=== PATIENT | female | born 1995 | race Asian ===

== ENCOUNTER 2018-08-13 13:09 | Emergency (ER) | payer SELFPAY ==
[~2018-08-13] VITALS: Ht 154.9 cm; Wt 57.2 kg
[2018-08-13 13:27] VITALS: BP 93/61
[2018-08-13 13:57] LABS: BASOPHILS # (AUTO) 0.02 x10^3/uL (0-0.3); BASOPHILS % (AUTO) 0 % (0-1); EOSINOPHILS # (AUTO) 0.04 x10^3/uL (0-0.8); EOSINOPHILS % (AUTO) 1 % (1-7); LYMPHOCYTES # (AUTO) 2.03 x10^3/uL (1-6.1); LYMPHOCYTES % (AUTO) 22 % (22-44); MD NO; MEAN CORPUSCULAR HEMOGLOBIN 28.8 pg (27.0-34.8); MEAN CORPUSCULAR HGB CONC 33.9 g/dL (32.4-35.8); MEAN CORPUSCULAR VOLUME 84.9 fL (80-100); MEAN PLATELET VOLUME 7.6 fL (7.4-10.4); MONOCYTES # (AUTO) 0.36 x10^3/uL (0-1.4); MONOCYTES % (AUTO) 4 % (2-9); NEUTROPHILS # (AUTO) 6.91 x10^3/uL (1.8-8.0); NEUTROPHILS % (AUTO) 74 % (42-75); PLATELET COUNT 326 x10^3/uL (130-400); RED BLOOD COUNT 4.66 x10^6/uL (3.82-5.3); RED CELL DISTRIBUTION WIDTH 14.1 % (9.6-15.2)
--- NOTE | 2018-08-13 18:24 | NUR ---
NO ANSWER IN LOBBY
--- NOTE | 2018-08-13 18:37 | NUR ---
NO ANSWER IN LOBBY
== END 2018-08-13 18:58 | disposition left against medical advice (07) ==
LOC: ED 18:52
DX: O26.891 Other specified pregnancy related conditions, first trimester (principal); R10.31 Right lower quadrant pain; Z3A.01 Less than 8 weeks gestation of pregnancy
CPT/HCPCS: 36415; 76805; 84702; 85025; 86901; 99284

== ENCOUNTER 2019-08-19 14:37 | Emergency (ER) | payer OTHER ==
[~2019-08-19] VITALS: Ht 152.4 cm; Wt 67.0 kg
[2019-08-19 14:51] VITALS: BP 96/66
[2019-08-19 16:51] LABS: CULTURE INDICATED? YES; MICROSCOPIC INDICATED
[2019-08-19 16:52] LABS: HCG UR SG 1.026 (1.003-1.030)
--- NOTE | 2019-08-19 17:35 | NUR ---
BREAK RN: Patient/Caregiver given discharge instructions and they have confirmed that they understand the instructions. Patient ambulatory with steady gait.
== END 2019-08-19 17:47 | disposition home or self-care (01) ==
LOC: ED 15:37
DX: O26.891 Other specified pregnancy related conditions, first trimester (principal); M54.5 Low back pain; Z3A.01 Less than 8 weeks gestation of pregnancy
CPT/HCPCS: 81001; 81025; 87086; 99283

== ENCOUNTER 2019-12-04 17:49 | Emergency (ER) | payer OTHER ==
[~2019-12-04] VITALS: Ht 165.1 cm; Wt 79.1 kg
[2019-12-04 18:40] VITALS: BP 111/71
[2019-12-04] MEDS ORDERED: DIPHENHYDRAMINE 25 MG CAPSULE ONE (19:02)
[2019-12-04] MEDS ORDERED: DIPHENHYDRAMINE 25 MG CAPSULE PO ONE (19:30)
--- NOTE | 2019-12-04 19:59 | NUR ---
PROVIDER AT BEDSIDE FOR ASSESSMENT.
--- NOTE | 2019-12-04 20:26 | NUR ---
MEDS GIVEN IN TRIAGE. PT STATES FEELING BETTER. CHART UP FOR RECHECK.
== END 2019-12-04 21:13 | disposition home or self-care (01) ==
LOC: ED 20:44
DX: L50.0 Allergic urticaria (principal)
CPT/HCPCS: 99283; J7512; Q0163